=== PATIENT | male | born 1960 | race Caucasian/White ===

== ENCOUNTER → 2021-10-10 | Outpatient (CLI) | payer OTHER | LOC: EDBD 14:50 → RAD 14:50 | DX: S83.242A Other tear of medial meniscus, current injury, left knee, initial encounter (principal); S83.282A Other tear of lateral meniscus, current injury, left knee, initial encounter; S86.112A Strain of other muscle(s) and tendon(s) of posterior muscle group at lower leg level, left leg, initial encounter; M17.11 Unilateral primary osteoarthritis, right knee; M71.22 Synovial cyst of popliteal space [Baker], left knee; X58.XXXA Exposure to other specified factors, initial encounter ==